=== PATIENT | male | born 1955 | race Hispanic/Latino ===

== ENCOUNTER 2017-12-26 06:05 | Day surgery (SDC) | payer MEDICAID ==
[~2017-12-26] VITALS: Ht 170.2 cm; Wt 73.8 kg
[~2017-12-26 06:05] MED LIST: ASPI-555 PO; ATOR40TA71 PO; CLOP75TA32 PO; FENO135C4 PO; METF500T6 PO; METO-391 PO; TERA2CAP4 PO; VALS320T2 PO
[2017-12-26 06:20] VITALS: BP 146/81
[2017-12-26] MEDS ORDERED: SODIUM CHLORIDE 0.9% 1000ML 1,000 ML IV ONE (06:37)
[2017-12-26] MEDS ORDERED: PROPOFOL 1000 MG/100 ML 100 ML IV ONE (08:05)
[2017-12-26] MEDS ORDERED: EPINEPHRINE 1 MG/ML AMPULE ONE (08:38)
== END 2017-12-26 09:30 ==
LOC: DAH 06:05 → ENDO 06:05
PROVIDERS: ATTEND Internal Medicine
DX: Z09 Encounter for follow-up examination after completed treatment for conditions other than malignant neoplasm (principal); K63.5 Polyp of colon; D12.3 Benign neoplasm of transverse colon; D12.5 Benign neoplasm of sigmoid colon; D12.7 Benign neoplasm of rectosigmoid junction; Z86.010 Personal history of colon polyps; I10 Essential (primary) hypertension; E78.5 Hyperlipidemia, unspecified; I25.10 Atherosclerotic heart disease of native coronary artery without angina pectoris; E11.51 Type 2 diabetes mellitus with diabetic peripheral angiopathy without gangrene; M54.30 Sciatica, unspecified side; Z98.890 Other specified postprocedural states; Z79.899 Other long term (current) drug therapy; Z79.84 Long term (current) use of oral hypoglycemic drugs; Z88.0 Allergy status to penicillin
CPT/HCPCS: 45380; 45385; 82948 ×2; 88305; 93005; A4606; A4649; J0171; J2704; J7030